=== PATIENT | female | born 1990 | race Caucasian/White ===

== ENCOUNTER → 2019-05-17 | Outpatient (CLI) | payer OTHER ==
[2019-05-21 15:07] LABS: HPV 16 Negative (Negative); HPV 18 Negative (Negative); HPV OTHER HR TYPES Positive (Negative)
== END | disposition home or self-care (01) ==
LOC: LAB 13:29 → LAB SHORT 13:29
PROVIDERS: Hospitalist
DX: Z12.4 Encounter for screening for malignant neoplasm of cervix (principal); R87.89 Other abnormal findings in specimens from female genital organs
CPT/HCPCS: 87624; 87625; G0145

== ENCOUNTER → 2019-07-12 | Outpatient (CLI) | payer OTHER | END | disposition home or self-care (01) | LOC: LAB SHORT 13:39 → PLD 13:39 | DX: N87.0 Mild cervical dysplasia (principal) | CPT/HCPCS: 88305 ==

== ENCOUNTER → 2022-07-05 | Outpatient (CLI) | payer OTHER | END | disposition home or self-care (01) | LOC: LAB SHORT 09:30 → LAB 09:30 | PROVIDERS: Hospitalist | DX: Z12.4 Encounter for screening for malignant neoplasm of cervix (principal) | CPT/HCPCS: G0145 ==

== ENCOUNTER → 2023-09-25 | Outpatient (CLI) | payer OTHER ==
[2023-09-25 15:20] LABS: BASOPHILS ABSOLUTE AUTO 0.04 K/mm3 (0.00-0.23); BASOPHILS PERCENT AUTO 1 % (0-2); EOSINOPHILS PERCENT AUTO 1 % (0-6); Hematocrit 37.6 % (33.0-51.0); Hemoglobin 12.4 g/dL (11.5-16.0); IMMATURE GRAN ABSOLUTE AUTO 0.03 K/mm3 (0.00-0.10); IMMATURE GRAN PERCENT AUTO 0 % (0-1); LYMPHOCYTES ABSOLUTE AUTO 2.46 K/mm3 (0.84-5.20); LYMPHOCYTES PERCENT AUTO 28 % (21-46); MONOCYTES ABSOLUTE AUTO 0.37 K/mm3 (0.16-1.47); MONOCYTES PERCENT AUTO 4 % (4-13); Mean Corpuscular HGB 29.6 pg (26.0-34.0); Mean Corpuscular Volume 90 fL (80-100); Mean Platelet Volume 11.6 fL (9.1-12.4); NEUTROPHILS ABSOLUTE AUTO 5.65 K/mm3 (1.96-9.15); NEUTROPHILS PERCENT AUTO 65 % (41-73); Platelet Count 263 K/mm3 (150-400); RDW Coefficient Variation 12.8 % (11.7-14.2); Red Blood Cell Count 4.19 M/mm3 (3.80-5.20); White Blood Cell Count 8.65 K/mm3 (4.00-11.30)
[2023-09-25 16:00] LABS: Albumin, Blood 3.3 g/dL (3.4-5.0); Albumin/Globulin Ratio 0.8 (0.8-1.8); Bilirubin, Total 0.2 mg/dL (0.1-1.0); Bun/Creatinine Ratio 11.9 (12.0-20.0); Calcium, Blood 9.2 mg/dL (8.5-10.1); Creatinine, Blood 0.84 mg/dL (0.40-1.00); Globulin, Blood 3.9 g/dL (2.2-4.0); Potassium, Blood 3.5 mmol/L (3.5-5.5); Total Protein, Blood 7.2 g/dL (6.4-8.2)
== END ==
LOC: LAB 12:00 → LAB SHORT 12:00
PROVIDERS: Hospitalist
DX: R10.84 Generalized abdominal pain (principal)
CPT/HCPCS: 80053; 83690; 85025

== ENCOUNTER 2024-10-18 08:25 | Inpatient (IN) | payer OTHER ==
[~2024-10-18] VITALS: Ht 177.8 cm; Wt 84.7 kg
[2024-10-18] MEDS ORDERED: TRI-MILI 28 TA1 EACH (09:26)
[2024-10-18] MEDS ORDERED: OMEP20ER (09:26)
[2024-10-18] MEDS ORDERED: Colace100 MG PO (09:26)
[2024-10-18] MEDS ORDERED: [UNRECOGNIZED DRUG - CODE] PO (09:26)
[2024-10-18] MEDS ORDERED: Haloperidol Lactate Inj. 5 MG/ML Injection IM ONE (10:00)
[2024-10-18 10:38] LABS: BASOPHILS ABSOLUTE AUTO 0.06 K/mm3 (0.00-0.23); BASOPHILS PERCENT AUTO 0 % (0-2); EOSINOPHILS ABSOLUTE AUTO 0.06 K/mm3 (0.00-0.68); EOSINOPHILS PERCENT AUTO 0 % (0-6); Hematocrit 41.5 % (33.0-51.0); Hemoglobin 13.8 g/dL (11.5-16.0); IMMATURE GRAN ABSOLUTE AUTO 0.05 K/mm3 (0.00-0.10); IMMATURE GRAN PERCENT AUTO 0 % (0-1); LYMPHOCYTES ABSOLUTE AUTO 1.93 K/mm3 (0.84-5.20); LYMPHOCYTES PERCENT AUTO 14 % (21-46); MONOCYTES ABSOLUTE AUTO 0.93 K/mm3 (0.16-1.47); MONOCYTES PERCENT AUTO 7 % (4-13); Mean Corpuscular HGB 29.4 pg (26.0-34.0); Mean Corpuscular HGB Conc 33.3 g/dL (31.5-36.5); Mean Corpuscular Volume 88 fL (80-100); Mean Platelet Volume 10.2 fL (9.1-12.4); NEUTROPHILS ABSOLUTE AUTO 10.78 K/mm3 (1.96-9.15); NEUTROPHILS PERCENT AUTO 78 % (41-73); Platelet Count 328 K/mm3 (150-400); RDW Coefficient Variation 13.5 % (11.7-14.2); RDW Standard Deviation 43.8 fL (35.1-46.3); White Blood Cell Count 13.81 K/mm3 (4.00-11.30)
[2024-10-18 11:10] LABS: Beta HCG, Quantitative, Serum <1 mIU/mL (0-3)
[2024-10-18] MEDS ORDERED: Ketorolac Tromethamine 15mg Vial IV ONE (11:10)
[2024-10-18] MEDS ORDERED: FentaNYL Citrate 50 MCG/ML 2 ML Injection IV ONE ×2 (11:10→12:25)
[2024-10-18 11:27] LABS: Alanine Aminotransfer (ALT/SGP 883 U/L (12-78); Albumin, Blood 3.4 g/dL (3.4-5.0); Albumin/Globulin Ratio 0.7 (0.8-1.8); Alk Phos 494 U/L (50-136); Anion Gap 10 mmol/L (3-11); Aspartate Aminotrans (AST/SGOT 491 U/L (12-37); Bilirubin, Total 4.7 mg/dL (0.1-1.0); Blood Urea Nitrogen 11 mg/dL (8-24); Bun/Creatinine Ratio 17.5 (12.0-20.0); CO2, Blood 24 mmol/L (21-32); Calcium, Blood 9.2 mg/dL (8.5-10.1); Chloride, Blood 101 mmol/L (98-108); Creatinine, Blood 0.63 mg/dL (0.40-1.00); Globulin, Blood 4.9 g/dL (2.2-4.0); Glomerular Filtration Rate 119 (60-); Glucose, Blood 126 mg/dL (70-99); Potassium, Blood 3.9 mmol/L (3.5-5.5); Sodium, Blood 131 mmol/L (136-145); Total Protein, Blood 8.3 g/dL (6.4-8.2)
[2024-10-18] MEDS ORDERED: Magnesium Hydroxide Conc 10 ML UDC PO ONE (11:30)
[2024-10-18] MEDS ORDERED: NS 1,000 ML IV SCH ×2 (15:05→15:55)
[2024-10-18] MEDS ORDERED: TraZODone HCl 50 MG Tab PO PRN (15:05)
[2024-10-18] MEDS ORDERED: Ondansetron 4 MG TAB PO PRN (15:05)
[2024-10-18] MEDS ORDERED: Bisacodyl 10 MG Supp PR PRN (15:10)
[2024-10-18] MEDS ORDERED: FLU VACC TS2024-25(6MOS UP)/PF 45 MCG/0.5 ML SYRINGE IM SCH (15:10)
[2024-10-18] MEDS ORDERED: Magnesium Hydroxide Conc 10 ML UDC PO PRN (15:10)
[2024-10-18] MEDS ORDERED: Acetaminophen 500 MG Tab PO PRN (15:20)
[2024-10-18] MEDS ORDERED: OxyCODONE HCL 5 MG TAB PO PRN (15:20)
[2024-10-18] MEDS ORDERED: Morphine Sulfate 4 MG/1 ML Injection IV PRN (15:20)
[2024-10-18] MEDS ORDERED: Piperacillin/Tazobactam Sod 3.375 GM in NS 100 ML IV SCH (17:00)
[2024-10-18 17:31] VITALS: BP 115/77
--- NOTE | 2024-10-18 18:51 | NUR ---
ADMISSION SUMMARY PT ADMITTED TO UNIT AT APPROX 1725. PT BROUGHT UP BY ROHIT, ABLE TO STAND AND AMBULATE TO HOSPITAL BED WITHOUT DIFFICULTY. PT REPORTS 5/10 ABD PAIN - REFUSES PAIN MEDICATION, K PAD PROVIDED PT REPORTS HEAT PROVIDES RELEIF. A/Ox4. NS @ 125 AND ZOSYN RUNNING UPON ARRIVAL. ADMISSION COMPLETED INCLUDING MED REC. SURGICAL CONSULT COMPLETED - PT TO [facility] TRANSFER FOR GI CONSULT FOR LIKELY AUTOIMMUNE DISORDER. PT ORIENTED TO ROOM AND CALL SYSTEM. PT CURRENTLY RESTING IN BED WITH BED IN LOWEST POSITION AND CALL LIGHT WITHIN REACH.
[2024-10-18] MEDS ORDERED: Lactobacil 2-S.Thermo-Bifido 1 1 Cap PO SCH (21:00)
[2024-10-18] MEDS ORDERED: Famotidine 20 MG Tab PO SCH (21:00)
[2024-10-18 21:51] VITALS: BP 123/79
[2024-10-19] VITALS (7 sets, daily range): BP systolic 110–126; BP diastolic 69–87
[2024-10-19 06:31] LABS: Hematocrit 33.1 % (33.0-51.0); Hemoglobin 10.7 g/dL (11.5-16.0); Mean Corpuscular HGB 29.2 pg (26.0-34.0); Mean Corpuscular HGB Conc 32.3 g/dL (31.5-36.5); Mean Corpuscular Volume 90 fL (80-100); Mean Platelet Volume 10.4 fL (9.1-12.4); Platelet Count 236 K/mm3 (150-400); RDW Coefficient Variation 13.7 % (11.7-14.2); RDW Standard Deviation 46.1 fL (35.1-46.3); Red Blood Cell Count 3.66 M/mm3 (3.80-5.20); White Blood Cell Count 9.59 K/mm3 (4.00-11.30)
--- NOTE | 2024-10-19 06:39 | NUR ---
SHIFT SUMMARY: Pt is admitted for cholecystitis and is a full code. Is alert and able to make needs known. ADLs have have been SBA. Pain has been managed with PRN medication. Phill reports sinus in the 90s with no events. gave verbal for ice chips during shift.
[2024-10-19 07:00] LABS: Magnesium, Blood 2.1 mg/dL (1.6-2.4)
[2024-10-19 07:26] LABS: Albumin, Blood 2.5 g/dL (3.4-5.0); Albumin/Globulin Ratio 0.7 (0.8-1.8); Bilirubin, Total 1.9 mg/dL (0.1-1.0); Bun/Creatinine Ratio 14.7 (12.0-20.0); Calcium, Blood 8.2 mg/dL (8.5-10.1); Creatinine, Blood 0.61 mg/dL (0.40-1.00); Globulin, Blood 3.8 g/dL (2.2-4.0); Potassium, Blood 3.4 mmol/L (3.5-5.5)
[2024-10-19 07:33] LABS: Total Protein, Blood 6.3 g/dL (6.4-8.2)
[2024-10-19] MEDS ORDERED: NS 1,000 ML IV SCH (08:00)
[2024-10-19] MEDS ORDERED: Potassium Chloride 20 MEQ TabCR PO ONE (09:00)
[2024-10-19] MEDS ORDERED: Enoxaparin 40 MG/0.4 ML SYR SC SCH (16:00)
--- NOTE | 2024-10-19 17:12 | NUR ---
SHIFT SUMMARY PATIENT WITH NO ACUTE EVENTS DURING SHIFT. SHE IS UP AD HARMAN, DENIES PAIN IN ABDOMEN TODAY, TOLERATING CLEAR LIQUIDS THIS AFTERNOON. BED IN LOW POSITION, CALL LIGHT IN REACH. SHE IS ABLE TO MAKE NEEDS KNOWN.
[2024-10-20 03:05] VITALS: BP 118/80
[2024-10-20] MEDS ORDERED: NS 250 ML IV PRN (04:50)
[2024-10-20 06:05] LABS: BASOPHILS ABSOLUTE AUTO 0.06 K/mm3 (0.00-0.23); BASOPHILS PERCENT AUTO 1 % (0-2); EOSINOPHILS ABSOLUTE AUTO 0.28 K/mm3 (0.00-0.68); EOSINOPHILS PERCENT AUTO 4 % (0-6); Hemoglobin 10.3 g/dL (11.5-16.0); IMMATURE GRAN ABSOLUTE AUTO 0.01 K/mm3 (0.00-0.10); IMMATURE GRAN PERCENT AUTO 0 % (0-1); LYMPHOCYTES ABSOLUTE AUTO 2.76 K/mm3 (0.84-5.20); LYMPHOCYTES PERCENT AUTO 37 % (21-46); MONOCYTES ABSOLUTE AUTO 0.64 K/mm3 (0.16-1.47); MONOCYTES PERCENT AUTO 9 % (4-13); Mean Corpuscular HGB 29.7 pg (26.0-34.0); Mean Corpuscular HGB Conc 33.2 g/dL (31.5-36.5); Mean Corpuscular Volume 89 fL (80-100); Mean Platelet Volume 10.7 fL (9.1-12.4); NEUTROPHILS ABSOLUTE AUTO 3.68 K/mm3 (1.96-9.15); NEUTROPHILS PERCENT AUTO 50 % (41-73); Platelet Count 229 K/mm3 (150-400); RDW Coefficient Variation 13.9 % (11.7-14.2); RDW Standard Deviation 45.6 fL (35.1-46.3); Red Blood Cell Count 3.47 M/mm3 (3.80-5.20); White Blood Cell Count 7.43 K/mm3 (4.00-11.30)
--- NOTE | 2024-10-20 06:18 | NUR ---
SHIFT SUMMARY: Pt is admitted for cholecystitis and is a full code. Is alert and able to make needs known. ADLs have have been IND. denies pain or discomfort when asked. Telly reports sinus in the 90s with no events.
[2024-10-20 06:27] LABS: Magnesium, Blood 2.2 mg/dL (1.6-2.4)
[2024-10-20 06:28] LABS: Albumin, Blood 2.5 g/dL (3.4-5.0); Albumin/Globulin Ratio 0.6 (0.8-1.8); Bilirubin, Total 1.1 mg/dL (0.1-1.0); Bun/Creatinine Ratio 7.4 (12.0-20.0); Calcium, Blood 8.4 mg/dL (8.5-10.1); Creatinine, Blood 0.54 mg/dL (0.40-1.00); Globulin, Blood 4.1 g/dL (2.2-4.0); Phosphorus, Blood 2.7 mg/dL (2.5-4.9); Potassium, Blood 3.7 mmol/L (3.5-5.5); Total Protein, Blood 6.6 g/dL (6.4-8.2)
[2024-10-20] MEDS ORDERED: NS 1,000 ML IV SCH (07:50)
[2024-10-20 08:06] VITALS: BP 117/74
[2024-10-20 11:42] VITALS: BP 111/78
[2024-10-20 16:02] VITALS: BP 101/73
--- NOTE | 2024-10-20 17:15 | NUR ---
NO ACUTE CHANGES AOX4 AND COOPERATIVE OF CARE. PT DENIES ANY PAIN AND HAS BEEN INDEPENDENT IN ROOM. NO DISTRESS NOTED AND CALL LIGHT IN REACH WILL CONTINUE TO MONITOR.
[2024-10-20 20:24] VITALS: BP 122/86
[2024-10-21 00:13] VITALS: BP 110/75
[2024-10-21 05:46] LABS: Hematocrit 30.6 % (33.0-51.0); Hemoglobin 9.9 g/dL (11.5-16.0); Mean Corpuscular HGB 29.5 pg (26.0-34.0); Mean Corpuscular HGB Conc 32.4 g/dL (31.5-36.5); Mean Corpuscular Volume 91 fL (80-100); Mean Platelet Volume 10.1 fL (9.1-12.4); Platelet Count 218 K/mm3 (150-400); RDW Coefficient Variation 13.7 % (11.7-14.2); RDW Standard Deviation 46.2 fL (35.1-46.3); Red Blood Cell Count 3.36 M/mm3 (3.80-5.20); White Blood Cell Count 6.28 K/mm3 (4.00-11.30)
[2024-10-21 05:48] VITALS: BP 114/82
[2024-10-21 06:23] LABS: Albumin, Blood 2.5 g/dL (3.4-5.0); Albumin/Globulin Ratio 0.6 (0.8-1.8); Bilirubin, Total 0.9 mg/dL (0.1-1.0); Bun/Creatinine Ratio 6.6 (12.0-20.0); Calcium, Blood 8.9 mg/dL (8.5-10.1); Creatinine, Blood 0.61 mg/dL (0.40-1.00); Globulin, Blood 4.1 g/dL (2.2-4.0); Phosphorus, Blood 3.9 mg/dL (2.5-4.9); Potassium, Blood 3.5 mmol/L (3.5-5.5); Total Protein, Blood 6.6 g/dL (6.4-8.2)
--- NOTE | 2024-10-21 06:30 | NUR ---
SHIFT SUMMARY A&0X4,INDEPENDENT IN RM, HAS DENIED ANY ABD PAIN THSI SHIFT OTHER THAN TENDER TO TOUCH, NO NAUSEA,STATES IS TOLERATING FULL LIQUID DIET LONG DOES NOT CONSUME LG QUANTITIES OF ANYTHING. BM X1 (LOOSE, STRINGY PER PT). VOIDING NORMALLY, STATES RESTED FAIR OVERNIGHT. VSS.
[2024-10-21 07:33] LABS: IMMUNOGLOBULIN G SUBCLASS 1 570 mg/dL (240-1118); IMMUNOGLOBULIN G SUBCLASS 2 418 mg/dL (124-549); IMMUNOGLOBULIN G SUBCLASS 3 56 mg/dL (21-134); IMMUNOGLOBULIN G SUBCLASS 4 25 mg/dL (1-123)
[2024-10-21 07:55] VITALS: BP 96/80
[2024-10-21] MEDS ORDERED: NS 1,000 ML IV SCH (08:00)
[2024-10-21 11:50] VITALS: BP 108/73
[2024-10-21 15:35] VITALS: BP 116/82
--- NOTE | 2024-10-21 16:44 | NUR ---
NO ACUTE CHANGES AOX4 AND COOPERATIVE OF CARE.PT DENIES ANY ABD PAIN AT THIS TIME AND HAS BEEN INDEPENDENT IN ROOM. NO DISTRESS NOTED AND CALL LIGHT IN REACH WILL CONTINUE TO MONITOR.
[2024-10-21 19:27] VITALS: BP 113/77
[2024-10-22 00:04] VITALS: BP 113/78
--- NOTE | 2024-10-22 03:17 | NUR ---
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 ALERT AND ORIENTED. COOPERATIVE. AFFECT [place] WHEN SPEAKING WITH STAFF. IVF OF NS INFUSING AT 100 ML/HR. TOLERATING REGULAR DIET. TELE SR IN THE 70'S. UP AD HARMAN, ABLE TO REPOSITION SELF IN BED WITHOUT ASSIST FOR COMFORT. IV ANTIBIOTICS INFUSING PER MD ORDER -SEE MAR FOR DETAILS. HAS BEEN RESTING QUIETLY WITH FEW INTERRUPTIONS. CALL LIGHT IN REACH, RAILS UP X 2 AND BED IN LOW POSITION FOR SAFETY. WILL CONTINUE TO MONITOR
[2024-10-22 04:45] VITALS: BP 109/76
[2024-10-22 05:32] LABS: Hematocrit 30.2 % (33.0-51.0); Hemoglobin 9.8 g/dL (11.5-16.0)
[2024-10-22 06:03] LABS: Magnesium, Blood 2.1 mg/dL (1.6-2.4)
[2024-10-22 06:08] LABS: Albumin, Blood 2.5 g/dL (3.4-5.0); Albumin/Globulin Ratio 0.7 (0.8-1.8); Bilirubin, Total 0.8 mg/dL (0.1-1.0); Calcium, Blood 8.5 mg/dL (8.5-10.1); Creatinine, Blood 0.72 mg/dL (0.40-1.00); Globulin, Blood 3.8 g/dL (2.2-4.0); Phosphorus, Blood 4.2 mg/dL (2.5-4.9); Potassium, Blood 3.6 mmol/L (3.5-5.5); Total Protein, Blood 6.3 g/dL (6.4-8.2)
[2024-10-22 07:19] VITALS: BP 106/77
[2024-10-22 11:20] VITALS: BP 103/74
--- NOTE | 2024-10-22 14:18 | NUR ---
Pt. is awake in bed when she welcomes my visit. Pt. is pleasant. When facilitating a life review the Pt. verbalized that she is a woman of danni. Listen with empathy and interest. Considered matters of danni, belief and the community. Pt. displays evidence of trust. Prayed with the Pt. Pt. verbalized gratitude for the spiritual care visit and welcomed this leader assembler to return.
[2024-10-22] MEDS ORDERED: AMOX875 PO (15:19)
[2024-10-22 15:34] VITALS: BP 115/77
--- NOTE | 2024-10-22 16:12 | NUR ---
PT DISCHARGED THE PT AND HER FATHER VERBALIZED UNDERSTANDING OF THE DC INSTRUCTIONS. THE PTS PRESCRIPTION WAS FAXED TO [employer]. THE PT WAS TRANSFERED VIA WHEELCHAIR ACCOMPANIED BY THE FAN MAIL CLERK AND HER FATHER
--- NOTE | 2024-10-22 16:24 | NUR ---
DISCHARGED HOME, DAD AND PATIENT STATED UNDERSTANDING OF MEDICATIONS, INSTRUCTIONS, AND FOLLOW UP NEEDS. BOTH DENIED FURTHER QUESTIONS
== END 2024-10-22 16:10 | disposition home or self-care (01) | DRG 444 ==
LOC: ER 08:25 → MEDS 08:26
PROVIDERS: Student in an Organized Health Care Education/Training Program; ADMIT Hospitalist
DX: K83.09 Other cholangitis (principal); K85.90 Acute pancreatitis without necrosis or infection, unspecified; K21.9 Gastro-esophageal reflux disease without esophagitis
CPT/HCPCS: 36415; 74018; 74181; 76705; 80053; 82787; 83690; 83735; 84100; 84702; 85014; 85018; 85025; 85027; 93005; 93010; 94760; 96361; 96372; 96374; 96375; 96376; 99285-25; A9270; G0378; J1630; J1650; J1885; J2543; J3010; J7030; J7050